=== PATIENT | male | born 1960 | race Caucasian/White ===

== ENCOUNTER 2023-05-07 16:19 | Inpatient (IN) | payer MEDICAID ==
[2023-05-07] MEDS ORDERED: Sodium Chloride 0.9% 10 ML Syringe FLUSH PRN (16:52)
[2023-05-07 17:55] LABS: BASOPHILS PERCENT AUTO 0.3 % (0.0-1.0); EOSINOPHILS ABSOLUTE AUTO 0.3 K/mm3 (0.0-0.4); EOSINOPHILS PERCENT AUTO 2.6 % (0.0-6.0); HEMOGLOBIN 14.6 gm/dl (14.0-18.0); IMMATURE GRAN ABSOLUTE AUTO 0.04 K/mm3 (0.00-0.05); IMMATURE GRAN PERCENT AUTO 0.4 % (0.0-0.4); LYMPHOCYTES ABSOLUTE AUTO 0.9 K/mm3 (1.0-4.8); LYMPHOCYTES PERCENT AUTO 7.8 % (24.0-44.0); MEAN CORPUSCULAR HGB CONC 34.8 g/dl (32.0-36.0); MEAN CORPUSCULAR VOLUME 83.3 fl (83.0-99.0); MEAN PLATELET VOLUME 8.9 fl (9.4-12.4); MONOCYTES ABSOLUTE AUTO 0.6 K/mm3 (0.0-0.8); MONOCYTES PERCENT AUTO 5.6 % (0.0-8.0); NEUTROPHILS ABSOLUTE AUTO 9.2 K/mm3 (1.8-7.7); NEUTROPHILS PERCENT AUTO 83.3 % (41.0-71.0); PLATELET COUNT,PLT 226 K/mm3 (150-400); RED BLOOD CELL COUNT 5.04 M/mm3 (4.52-5.90); WHITE BLOOD CELL COUNT,WBC 11.02 K/mm3 (3.9-11.3)
[2023-05-07 18:35] LABS: A/G RATIO 0.9 (1-2); ALBUMIN 3.1 g/dl (3.4-5.0); ANION GAP 15.8 (5-15); BILIRUBIN TOTAL 0.7 mg/dL (0.2-1.0); CREATININE 0.8 mg/dL (0.7-1.3); EST CRCL DRUG DOSING (CG) 89.35 mL/min; MAGNESIUM 1.7 mg/dL (1.8-2.4); POTASSIUM,K 3.8 mEq/L (3.5-5.1); PROTEIN TOTAL,TP 6.6 g/dl (6.4-8.2)
[2023-05-07] MEDS ORDERED: Sodium Chloride 0.9% 10 ML Syringe FLUSH ONE (18:39)
[2023-05-07] MEDS ORDERED: Iopamidol 612 MG/ML 100 ML Bottle IVPUSH ONE (18:39)
[2023-05-07] MEDS ORDERED: Sodium Chloride 0.9% 1,000 ML IV SCH (18:45)
[2023-05-07] MEDS ORDERED: Albuterol/Ipratropium 3.0-0.5 MG/3 ML Neb Soln NEB PRN (21:13)
[2023-05-07] MEDS ORDERED: Dextrose 5%-Lactated Ringers 1,000 ML IV SCH ×2 (21:45→22:00)
[2023-05-07] MEDS ORDERED: LORazepam 2 MG/ML SDV IVPUSH ONE (21:51)
[2023-05-08] MEDS: Albuterol/Ipratropium 3.0-0.5 MG/3 ML Neb Soln NEB SCH ×3 (05:35→20:20)
[2023-05-08 05:47] LABS: ALBUMIN 3.5 g/dl (3.4-5.0); ANION GAP 14.3 (5-15); CALCIUM 8.7 mg/dL (8.5-10.1); CREATININE 0.6 mg/dL (0.7-1.3); EST CRCL DRUG DOSING (CG) 117.3 mL/min; POTASSIUM,K 3.3 mEq/L (3.5-5.1); PROTEIN TOTAL,TP 7.1 g/dl (6.4-8.2)
[2023-05-08] MEDS ORDERED: LORazepam 2 MG/ML SDV IVPUSH ONE (06:24)
[2023-05-08] MEDS ORDERED: Sodium Chloride 0.9% 1,000 ML IV SCH (06:30)
[2023-05-08] MEDS ORDERED: Haloperidol 5 MG Tab PO SCH (09:00)
[2023-05-08] MEDS ORDERED: Potassium Chloride 20 MEQ Tab.ER PO SCH (09:00)
[2023-05-08] MEDS ORDERED: Enoxaparin 40 MG/0.4 ML Syringe SUBCUT SCH (10:00)
[2023-05-08 12:38] LABS: ANION GAP 12.6 (5-15); BUN/CREATININE RATIO 11.7 (14-18); CALCIUM 8.4 mg/dL (8.5-10.1); CREATININE 0.6 mg/dL (0.7-1.3); EST CRCL DRUG DOSING (CG) 117.3 mL/min
[2023-05-08 12:41] LABS: POTASSIUM,K 3.6 mEq/L (3.5-5.1)
[2023-05-08] MEDS ORDERED: Sodium Chloride 3% 50 ML IV ONE (13:00)
[2023-05-08] MEDS: Nicotine 14 MG/24 Hr Patch TRDERM SCH (15:49)
[2023-05-08] MEDS: LORazepam 2 MG/ML SDV IVPUSH PRN ×2 (15:54→22:14)
[2023-05-08] MEDS: Tamsulosin 0.4 MG Cap.ER PO SCH (20:27)
[2023-05-08] MEDS: Haloperidol 5 MG Tab PO SCH (20:28)
[2023-05-08] MEDS ORDERED: fentaNYL 100 MCG/2 ML SDV IVPUSH PRN (23:59)
[2023-05-09] MEDS: fentaNYL 100 MCG/2 ML SDV IVPUSH PRN ×5 (00:52→09:49)
[2023-05-09] MEDS: Levothyroxine 75 MCG Tab PO SCH (05:45)
[2023-05-09] MEDS: LORazepam 2 MG/ML SDV IVPUSH PRN ×2 (05:49→10:43)
[2023-05-09] MEDS: Albuterol/Ipratropium 3.0-0.5 MG/3 ML Neb Soln NEB SCH (06:47)
[2023-05-09] MEDS: Haloperidol 5 MG Tab PO SCH ×2 (09:50→20:26)
[2023-05-09] MEDS: Nicotine 14 MG/24 Hr Patch TRDERM SCH (09:51)
[2023-05-09] MEDS ORDERED: Albuterol/Ipratropium 3.0-0.5 MG/3 ML Neb Soln NEB PRN (14:00)
[2023-05-09] MEDS: Tamsulosin 0.4 MG Cap.ER PO SCH (20:27)
[2023-05-09] MEDS: Albuterol/Ipratropium 3.0-0.5 MG/3 ML Neb Soln NEB PRN (21:10)
[2023-05-10] MEDS: Levothyroxine 75 MCG Tab PO SCH (05:17)
[2023-05-10] MEDS: Acetaminophen 325 MG Tab PO PRN (05:17)
[2023-05-10] MEDS: Albuterol/Ipratropium 3.0-0.5 MG/3 ML Neb Soln NEB PRN ×3 (07:29→20:06)
[2023-05-10] MEDS: Haloperidol 5 MG Tab PO SCH ×2 (09:01→22:30)
[2023-05-10] MEDS: Nicotine 14 MG/24 Hr Patch TRDERM SCH (09:02)
[2023-05-10] MEDS: Benztropine 1 MG Tab PO SCH (09:02)
[2023-05-10] MEDS: LORazepam 2 MG/ML SDV IVPUSH PRN ×2 (10:03→19:08)
[2023-05-10] MEDS: Tamsulosin 0.4 MG Cap.ER PO SCH (22:30)
[2023-05-11] MEDS: LORazepam 2 MG/ML SDV IVPUSH PRN ×2 (00:54→22:23)
[2023-05-11] MEDS: fentaNYL 100 MCG/2 ML SDV IVPUSH PRN (04:30)
[2023-05-11] MEDS: Levothyroxine 75 MCG Tab PO SCH (07:29)
[2023-05-11] MEDS: Haloperidol 5 MG Tab PO SCH ×2 (08:20→22:24)
[2023-05-11] MEDS: Benztropine 1 MG Tab PO SCH (08:21)
[2023-05-11] MEDS: Nicotine 14 MG/24 Hr Patch TRDERM SCH (08:22)
[2023-05-11] MEDS: Tamsulosin 0.4 MG Cap.ER PO SCH (22:24)
[2023-05-11] MEDS: Albuterol/Ipratropium 3.0-0.5 MG/3 ML Neb Soln NEB PRN (22:34)
[2023-05-12] MEDS: LORazepam 2 MG/ML SDV IVPUSH PRN ×2 (01:45→20:51)
[2023-05-12] MEDS: Haloperidol 5 MG Tab PO SCH ×4 (06:11→23:41)
[2023-05-12] MEDS: Levothyroxine 75 MCG Tab PO SCH (06:51)
[2023-05-12] MEDS: Nicotine 14 MG/24 Hr Patch TRDERM SCH (08:26)
[2023-05-12] MEDS: Benztropine 1 MG Tab PO SCH (08:26)
[2023-05-12] MEDS ORDERED: Acetaminophen/HYDROcodone 325-5 MG Tab PO PRN (09:13)
[2023-05-12] MEDS: Albuterol/Ipratropium 3.0-0.5 MG/3 ML Neb Soln NEB PRN (11:25)
[2023-05-12] MEDS ORDERED: Polyethylene Glycol 3350 Powder 17 GM Packet PO PRN (14:01)
[2023-05-12] MEDS: Bisacodyl 5 MG Tab PO SCH (14:10)
[2023-05-12] MEDS: Sennosides 8.6 MG Tab PO SCH (14:10)
[2023-05-12] MEDS: Tamsulosin 0.4 MG Cap.ER PO SCH ×2 (19:54→23:41)
[2023-05-12] MEDS: Acetaminophen 325 MG Tab PO PRN (19:56)
[2023-05-12] MEDS: Morphine 2 MG/ML SYRINGE IVPUSH PRN (21:59)
[2023-05-13] MEDS: Morphine 2 MG/ML SYRINGE IVPUSH PRN ×5 (00:25→21:37)
[2023-05-13] MEDS: LORazepam 2 MG/ML SDV IVPUSH PRN (02:21)
[2023-05-13] MEDS: Levothyroxine 75 MCG Tab PO SCH ×2 (04:48→07:54)
[2023-05-13] MEDS: Haloperidol 5 MG Tab PO SCH ×2 (08:47→21:16)
[2023-05-13] MEDS: Bisacodyl 5 MG Tab PO SCH (08:47)
[2023-05-13] MEDS: Benztropine 1 MG Tab PO SCH (08:47)
[2023-05-13] MEDS: Sennosides 8.6 MG Tab PO SCH (08:47)
[2023-05-13] MEDS: Nicotine 14 MG/24 Hr Patch TRDERM SCH ×3 (08:48→16:24)
[2023-05-13] MEDS: Albuterol/Ipratropium 3.0-0.5 MG/3 ML Neb Soln NEB PRN (21:05)
[2023-05-13] MEDS: Tamsulosin 0.4 MG Cap.ER PO SCH (21:16)
[2023-05-14] MEDS: Morphine 2 MG/ML SYRINGE IVPUSH PRN ×4 (04:18→08:06)
[2023-05-14] MEDS: Albuterol/Ipratropium 3.0-0.5 MG/3 ML Neb Soln NEB PRN (06:14)
[2023-05-14] MEDS: Levothyroxine 75 MCG Tab PO SCH (06:23)
[2023-05-14] MEDS: Bisacodyl 5 MG Tab PO SCH (08:42)
[2023-05-14] MEDS: Nicotine 14 MG/24 Hr Patch TRDERM SCH (08:42)
[2023-05-14] MEDS: Benztropine 1 MG Tab PO SCH (08:42)
[2023-05-14] MEDS: Sennosides 8.6 MG Tab PO SCH (08:42)
[2023-05-14] MEDS: Haloperidol 5 MG Tab PO SCH ×2 (08:42→21:26)
[2023-05-14] MEDS: LORazepam 2 MG/ML SDV IVPUSH PRN ×2 (10:06→21:27)
[2023-05-14] MEDS: Scopalamine 1mg/3day Transdermal Patch TRDERM SCH (11:29)
[2023-05-14] MEDS ORDERED: Benzonatate 100 MG Cap PO PRN (15:09)
[2023-05-14] MEDS: Tamsulosin 0.4 MG Cap.ER PO SCH (21:26)
[2023-05-15] MEDS: LORazepam 2 MG/ML SDV IVPUSH PRN ×3 (03:50→20:32)
[2023-05-15] MEDS: Levothyroxine 75 MCG Tab PO SCH (06:29)
[2023-05-15] MEDS: Bisacodyl 5 MG Tab PO SCH (09:16)
[2023-05-15] MEDS: Sennosides 8.6 MG Tab PO SCH (09:16)
[2023-05-15] MEDS: Nicotine 14 MG/24 Hr Patch TRDERM SCH (09:16)
[2023-05-15] MEDS: Haloperidol 5 MG Tab PO SCH ×2 (09:16→20:32)
[2023-05-15] MEDS: Benztropine 1 MG Tab PO SCH (09:17)
[2023-05-15] MEDS: Tamsulosin 0.4 MG Cap.ER PO SCH (20:32)
[2023-05-16] MEDS: Levothyroxine 75 MCG Tab PO SCH (06:35)
[2023-05-16] MEDS: Benztropine 1 MG Tab PO SCH (10:05)
[2023-05-16] MEDS: Bisacodyl 5 MG Tab PO SCH (10:05)
[2023-05-16] MEDS: Nicotine 14 MG/24 Hr Patch TRDERM SCH (10:06)
[2023-05-16] MEDS: Sennosides 8.6 MG Tab PO SCH (10:06)
[2023-05-16] MEDS: Haloperidol 5 MG Tab PO SCH ×2 (10:06→22:37)
[2023-05-16] MEDS: LORazepam 2 MG/ML SDV IVPUSH PRN ×3 (13:29→22:36)
[2023-05-16] MEDS: Tamsulosin 0.4 MG Cap.ER PO SCH (22:36)
[2023-05-17] MEDS: LORazepam 2 MG/ML SDV IVPUSH PRN ×2 (04:57→13:55)
[2023-05-17] MEDS: Levothyroxine 75 MCG Tab PO SCH (06:09)
[2023-05-17] MEDS: Benztropine 1 MG Tab PO SCH (09:10)
[2023-05-17] MEDS: Sennosides 8.6 MG Tab PO SCH (09:10)
[2023-05-17] MEDS: Bisacodyl 5 MG Tab PO SCH (09:10)
[2023-05-17] MEDS: Haloperidol 5 MG Tab PO SCH (09:19)
[2023-05-17] MEDS: Nicotine 14 MG/24 Hr Patch TRDERM SCH (09:43)
[2023-05-17] MEDS: Scopalamine 1mg/3day Transdermal Patch TRDERM SCH (09:45)
== END 2023-05-17 14:00 | disposition hospice, inpatient (51) | DRG 643 ==
LOC: JD.ED 16:19 → JD.MS 21:58
PROVIDERS: ADMIT Internal Medicine; ATTEND Internal Medicine
DX: E22.2 Syndrome of inappropriate secretion of antidiuretic hormone (principal); J96.01 Acute respiratory failure with hypoxia; J44.9 Chronic obstructive pulmonary disease, unspecified; F19.10 Other psychoactive substance abuse, uncomplicated; E78.00 Pure hypercholesterolemia, unspecified; I10 Essential (primary) hypertension; E87.1 Hypo-osmolality and hyponatremia; N40.0 Benign prostatic hyperplasia without lower urinary tract symptoms; R63.4 Abnormal weight loss; R62.50 Unspecified lack of expected normal physiological development in childhood; Z87.891 Personal history of nicotine dependence; Z79.899 Other long term (current) drug therapy; C34.2 Malignant neoplasm of middle lobe, bronchus or lung; F20.9 Schizophrenia, unspecified
CPT/HCPCS: 36415; 71046; 71260; 80053; 83605; 83735; 83930; 85025; 94640; 96360; 96361; 99285; J3490; J7030; Q9967; 51701; 51798; 80048; 84300; 87641; 94667; 94668; 94760; 94761; 97162-GP; 99231; 99232; 99239; A9270-GY; C1758; J2060; J2270; J3010; J7121; J7620-GY